=== PATIENT | male | born 1985 | race Caucasian/White ===

== ENCOUNTER 2019-05-27 17:16 | Emergency (ER) | payer OTHER ==
[~2019-05-27] VITALS: Ht 162.6 cm; Wt 68.0 kg
[2019-05-27 17:26] VITALS: BP 116/78
== END 2019-05-27 18:15 | disposition home or self-care (01) ==
LOC: ER 17:16
DX: M79.10 Myalgia, unspecified site (principal)

== ENCOUNTER 2019-06-22 20:40 | Emergency (ER) | payer OTHER ==
[~2019-06-22] VITALS: Ht 162.6 cm; Wt 63.5 kg
[2019-06-22 21:25] LABS: URINE BILIRUBIN NEGATIVE (Negative); URINE BLOOD NEGATIVE (Negative); URINE CLARITY CLEAR; URINE COLOR YELLOW; URINE GLUCOSE-RANDOM* NEGATIVE (Negative); URINE KETONES NEGATIVE (Negative); URINE LEUKOCYTES-REFLEX NEGATIVE (Negative); URINE NITRITE-REFLEX NEGATIVE (Negative); URINE PROTEIN (DIPSTICK) TRACE (Negative); URINE SPECIFIC GRAVITY 1.025 (1.005-1.035); URINE UROBILINOGEN 0.2 E.U./dl (0.2-1.0)
[2019-06-22 21:40] LABS: AMP/METHAMP Negative (Negative); BARBITURATES Negative (Negative); BENZODIAZEPINES Negative (Negative); COCAINE Negative (Negative); METHADONE Negative (Negative); OPIATES Negative (Negative); PCP Negative (Negative)
[2019-06-22] MEDS ORDERED: IBUPROFEN 600600 M1 PO (22:47)
[2019-06-23 00:37] VITALS: BP 108/66
--- NOTE | 2019-06-23 08:09 | EKG ---
[facility] [place] [place] [address] ELECTROCARDIOGRAM REPORT Name: RUBI HOUSE Room #: DEP [facility]#: [id number] Admission: 06/22/19 Attend Phys: Discharge: 06/23/19 Date of : 83 Report #: [id number] THIS REPORT FOR: cc: GLENDY - Tamela family physician/PCP GLENDY - Tamela family physician/PCP Clemente Mckinnon MD [facility] THIS REPORT FOR: //name// [facility] ED Test Date: 2019-06-22 Test Time: 21:48:22 Pat Name: RUBI HOUSE Department: Room: Gender: Sixth Grade Teacher: Lm GEORGE : 1985 Requested By: Felicita Bearden Order Number: [id number] MD: Clemente Mckinnon Measurements Intervals [place] Rate: 55 P: 51 MA: 163 QRS: 55 QRSD: 99 T: -37 QT: 442 QTc: 423 Interpretive Statements Sinus bradycardia Nonspecific T wave abnormality Baseline wander in lead(s) I,II,aVR,aVL,V1,V2 No previous ECG available for comparison Electronically Signed On 06-23-2019 8:08:27 [employer]Y CHAIN DESIGN MANAGER by Clemente Mckinnon [email or web address] <ELECTRONICALLY SIGNED> By: Clemente Mckinnon MD, [facility] 06/23/19 0808 Clemente Mckinnon MD, [facility] /EPI
== END 2019-06-23 00:38 | disposition home or self-care (01) ==
LOC: ER 20:40
PROVIDERS: Nurse Practitioner Family
DX: M79.10 Myalgia, unspecified site (principal); Z59.0 Homelessness; Z79.899 Other long term (current) drug therapy

== ENCOUNTER 2019-10-26 03:02 | Emergency (ER) | payer OTHER ==
[~2019-10-26] VITALS: Ht 162.6 cm; Wt 63.5 kg
[~2019-10-26 03:02] MED LIST: IBUPROFEN 600600 M1 PO
[2019-10-26 05:23] LABS: AMP/METHAMP Negative (Negative); BARBITURATES Negative (Negative); BENZODIAZEPINES Negative (Negative); COCAINE Negative (Negative); METHADONE Negative (Negative); OPIATES Negative (Negative); PCP Negative (Negative)
[2019-10-26 07:05] VITALS: BP 101/64
--- NOTE | 2019-10-27 08:03 | EKG ---
[facility] [place] [place] [address] ELECTROCARDIOGRAM REPORT Name: RUBI HOUSE Room #: DEP [facility]#: [id number] Admission: 10/26/19 Attend Phys: Discharge: 10/26/19 Date of : 83 Report #: [id number] THIS REPORT FOR: cc: GLENDY - Tamela family physician/PCP GLENDY - Tamela family physician/PCP Clemente Mckinnon MD [facility] THIS REPORT FOR: //name// [facility] ED Test Date: 2019-10-26 Test Time: 03:48:58 Pat Name: RUBI HOUSE Department: Room: Gender: Warehouse Guard: : 1985 Requested By: John Gómez Order Number: [id number] MD: Clemente Mckinnon Measurements Intervals [place] Rate: 47 P: 65 TX: 152 QRS: 82 QRSD: 101 T: 39 QT: 480 QTc: 425 Interpretive Statements Sinus bradycardia Ventricular premature complex Compared to ECG 06/22/2019 21:48:22 Ventricular premature complex(es) now present T-wave abnormality no longer present Electronically Signed On 10-27-2019 8:03:02 CDT by Clemente Mckinnon [email or web address] <ELECTRONICALLY SIGNED> By: Clemente Mckinnon MD, [facility] 10/27/19 [id number] Clemente Mckinnon MD, [facility] /EPI
== END 2019-10-26 07:06 | disposition home or self-care (01) ==
LOC: ER 03:02
PROVIDERS: Emergency Medicine
DX: R07.9 Chest pain, unspecified (principal); R53.1 Weakness; Z79.899 Other long term (current) drug therapy; F17.210 Nicotine dependence, cigarettes, uncomplicated; Z59.0 Homelessness